=== PATIENT | female | born 1950 | race Caucasian/White ===

== ENCOUNTER 2016-11-19 09:57 | Outpatient (CLI) ==
[2016-06-15 14:13] VITALS: BMI 35.4
[2016-11-19 10:17] LABS: BILIRUBIN,URINE Negative (NEGATIVE); KETONES,URINE Negative (NEGATIVE); LEUKOCYTE ESTERASE ,URINE Negative (NEGATIVE); NITRITE,URINE Negative (NEGATIVE); PH,URINE 5.5 (5-9); PROTEIN,URINE Negative (NEGATIVE); URINE, BLOOD 3+ (NEGATIVE)
[2016-11-19 10:20] LABS: ADD URINE MICROSCOPIC YES; BACTERIA,URINE TRACE (NOT PRESENT)
== END 2016-11-19 09:58 | disposition home or self-care (01) ==
LOC: LAB 09:57
PROVIDERS: ATTEND Nurse Practitioner
DX: N39.0 Urinary tract infection, site not specified (principal)
CPT/HCPCS: 81001; 87086

== ENCOUNTER 2017-01-15 10:31 | Outpatient (CLI) ==
[2016-06-15 14:13] VITALS: BMI 35.4
[2017-01-15 11:01] LABS: HEMATOCRIT 40.6 % (37.0-47.0); HEMOGLOBIN 13.8 g/dl (12.0-16.0); MEAN CORPUSCULAR HEMOGLOBIN 30.8 pg (27.0-31.0); MEAN CORPUSCULAR VOLUME 90.6 fl (81.0-99.0); RED BLOOD COUNT 4.48 10^6/ul (4.20-5.40); WHITE BLOOD COUNT 11.66 K/ul (4.6-10.2)
[2017-01-15 11:13] LABS: BILIRUBIN,URINE Negative (NEGATIVE); KETONES,URINE Negative (NEGATIVE); LEUKOCYTE ESTERASE ,URINE Negative (NEGATIVE); NITRITE,URINE Negative (NEGATIVE); PH,URINE 5.5 (5-9); PROTEIN,URINE Negative (NEGATIVE); URINE, BLOOD 3+ (NEGATIVE)
[2017-01-15 11:18] LABS: ADD URINE MICROSCOPIC YES
[2017-01-15 11:22] LABS: ALBUMIN 3.6 g/dL (3.4-5.0); ALBUMIN/GLOBULIN RATIO 0.9; ANION GAP 17.6; BILIRUBIN,TOTAL 0.39 mg/dL (0.00-1.20); BUN/CREATININE RATIO 12.42; CALCIUM 9.6 mg/dL (8.2-10.2); CREATININE 1.61 mg/dL (0.60-1.30); MAGNESIUM 1.7 mg/dL (1.7-2.2); PHOSPHORUS 3.7 mg/dL (2.8-4.1); POTASSIUM 3.6 mmol/L (3.5-5.10); TOTAL PROTEIN 7.6 g/dL (5.8-8.1); URIC ACID 6.3 mg/dL (2.4-6.0)
[2017-01-16 08:18] LABS: URINE CREATINE 77.3 mg/dL (Not Estab.)
== END 2017-01-15 10:32 | disposition home or self-care (01) ==
LOC: LAB 10:31
PROVIDERS: ATTEND Nurse Practitioner
DX: N18.3 Chronic kidney disease, stage 3 (moderate) (principal)
CPT/HCPCS: 36415; 80053; 81001; 82570; 83735; 84100; 84156; 84550; 85025; 85027

== ENCOUNTER 2017-06-22 09:28 | Outpatient (CLI) ==
[2016-06-15 14:13] VITALS: BMI 35.4
[2017-06-22 09:43] LABS: HEMATOCRIT 38.1 % (37.0-47.0); HEMOGLOBIN 12.9 g/dl (12.0-16.0); MEAN CORPUSCULAR HEMOGLOBIN 30.3 pg (27.0-31.0); MEAN CORPUSCULAR HGB CONC 33.9 (31.8-35.4); MEAN CORPUSCULAR VOLUME 89.4 fl (81.0-99.0); RED BLOOD COUNT 4.26 10^6/ul (4.20-5.40); WHITE BLOOD COUNT 8.86 K/ul (4.6-10.2)
[2017-06-22 09:56] LABS: BILIRUBIN,URINE Negative (NEGATIVE); KETONES,URINE Negative (NEGATIVE); LEUKOCYTE ESTERASE ,URINE Negative (NEGATIVE); NITRITE,URINE Negative (NEGATIVE); PROTEIN,URINE Negative (NEGATIVE); URINE, BLOOD 2+ (NEGATIVE)
[2017-06-22 10:00] LABS: ADD URINE MICROSCOPIC YES
[2017-06-22 10:28] LABS: ALBUMIN 3.3 g/dL (3.4-5.0); ALBUMIN/GLOBULIN RATIO 0.92; ANION GAP 13.6; BILIRUBIN,TOTAL 0.35 mg/dL (0.00-1.20); BUN/CREATININE RATIO 18.43; CALCIUM 9.5 mg/dL (8.2-10.2); CREATININE 1.41 mg/dL (0.60-1.30); MAGNESIUM 1.6 mg/dL (1.7-2.2); PHOSPHORUS 3.4 mg/dL (2.8-4.1); POTASSIUM 3.6 mmol/L (3.5-5.10); TOTAL PROTEIN 6.9 g/dL (5.8-8.1); URIC ACID 6.8 mg/dL (2.4-6.0)
[2017-06-23 08:18] LABS: URINE CREATINE 118.4 mg/dL (Not Estab.)
== END 2017-06-22 09:29 | disposition home or self-care (01) ==
LOC: LAB 09:28
PROVIDERS: ATTEND Nurse Practitioner
DX: N18.3 Chronic kidney disease, stage 3 (moderate) (principal); E55.9 Vitamin D deficiency, unspecified
CPT/HCPCS: 36415; 80053; 81001; 82306; 82570; 83735; 83970; 84100; 84156; 84550; 85027

== ENCOUNTER 2017-08-05 15:15 | Emergency (ER) ==
[2017-08-05 15:22] VITALS: BP 143/80; TEMP 100.4; BMI 33.1
--- NOTE | 2017-08-05 16:06 | ED.PDOC ---
General ED Provider: Dr. SARAH GASPAR Chief Complaint: Back Pain Stated Complaint: Low back pain x 3 days, gradually getting worse. No known trauma. PMH of back pain but never this severe. PMH of chronic UTI resolved last october after months of treatment. PMH of diverticulitis without flare up in years. Time Seen by Physician: 16:00 Mode of Arrival: Walk-In Information Source: Patient Exam Limitations: No limitations Primary Care Provider: SUHAIL WALTON Nursing and Triage Documentation Reviewed and Agree: Yes Musculoskeletal Complaint Exam - Back Pain Complaint/Exam Mechanism of Injury: Reports: No known trauma Onset/Duration: 3 days Symptoms Are: Still present Timing: Constant Initial Severity: Mild Current Severity: Moderate Location: Reports: Diffuse Character: Reports: Aching, Throbbing Aggravating: Reports: Movements, Lifting, Bending, Walking Alleviating: Reports: None Associated Signs and Symptoms: Reports: Abdominal pain (generalized abd pain) Cauda Equina Risk Factors: Reports: None Epidural Abcess Risk Factors: Reports: None Related Surgical History: Reports: None Focal Tenderness: No Paraspinal Muscle Tenderness: Yes Paraspinal Muscle Spasm: No Scoliosis: No Lordosis: No Kyphosis: No SLR Test: Right Negative, Left Negative Hip Motion Testing Pain: Right Negative Focal Weakness: Present: None Focal Sensory Loss: Present: None Gait: Present: Normal Differential Diagnoses: Strain, Other (potential referred pain from multiple abd sources) Review of Systems - Review Of Systems Constitutional: Reports: No symptoms Respiratory: Reports: No symptoms Cardiac: Reports: No symptoms GI: Reports: Abdominal pain, Nausea, Vomiting (vomitted once last night) : Reports: Dysuria (difficulty voiding last night, small amount of urine unusually dark) Musculoskeletal: Reports: Back pain Neurological: Reports: No symptoms All Other Systems: Reviewed and Negative Past Medical History - Past Medical History Previously Healthy: Yes Endocrine: Reports: Dyslipidemia Cardiovascular: Reports: Hypertension Respiratory: Reports: None Hematological: Reports: None Gastrointestinal: Reports: None Genitourinary: Reports: UTI (chronic UTI last year with episode of sepsis), CKD Neuro/Psych: Reports: TIA Musculoskeletal: Reports: None Cancer: Reports: None Last Menstrual Period: hysterectomy - Surgical History General Surgical History: Reports: Unknown - Family History Family History: Reports: Unknown - Social History Smoking Status: Current every day smoker Hx Substance Use: No Alcohol Screening: None Lives: With family - Immunizations Tetanus Shot up to Date: No Influenza Vaccine within 12 Months: No Pneumococcal Vaccine up to Date: No Physical Exam - Physical Exam Appearance: Ill-appearing, No pain distress, Well-nourished, Obese Ill-appearing: Moderate Pain Distress: None Eyes: RYAN, EOMI, Conjunctiva clear ENT: Ears normal, Nose normal, Oropharynx normal Neck: Supple Respiratory: Airway patent, Breath sounds clear, Breath sounds equal, Respirations nonlabored Cardiovascular: RRR, Pulses normal, No rub, No murmur GI/: Soft, No masses, Bowel sounds normal, No Organomegaly, Tender ( generalized moderate tenderness with guarding or rebound) Musculoskeletal: Normal strength, ROM intact (lumbar paravertebral muscles are tender touch bilaterally), No edema, No calf tenderness Skin: Warm, Dry, Normal color Neurological: Sensation intact, Motor intact, Reflexes intact, Cranial nerves intact, Alert, Oriented Psychiatric: Affect appropriate, Mood appropriate Critical Care Note - Critical Care Note Total Time (mins): 0 Course - Course Hematology/Chemistry: 08/05/17 16:09 08/05/17 16:09 Orders, Labs, Meds: Lab Review 08/05/17 08/05/17 08/05/17 16:09 16:09 16:09 WBC 15.09 H RBC 4.12 L Hgb 12.5 Hct 36.7 L MCV 89.1 MCH 30.3 MCHC 34.1 RDW Coeff of Ellie 13.9 Plt Count 172 Immature Gran % (Auto) 0.8 Neut % (Auto) 83.7 Lymph % (Auto) 10.3 [place] % (Auto) 4.4 Eos % (Auto) 0.5 Baso % (Auto) 0.3 Immature Gran # (Auto) 0.1 Neut # 12.6 H Lymph # 1.6 [place] # 0.7 Eos # 0.1 Baso # 0.0 PT 27.5 H INR 2.78 Sodium 135 L Potassium 3.1 L Chloride 99 Carbon Dioxide 25 Anion Gap 14.1 BUN 33 H Creatinine 1.98 H Estimated GFR (MDRD) 25.00 BUN/Creatinine Ratio 16.66 Glucose 133 H Calcium 9.1 Total Bilirubin 0.47 AST 11 L ALT 11 L Alkaline Phosphatase 53 Total Protein 7.2 Albumin 3.0 L Globulin 4.2 Albumin/Globulin Ratio 0.71 Amylase 19 L Lipase 15 Urine Color Urine Clarity Urine pH Ur Specific Friend Urine Protein Urine Glucose (UA) Urine Ketones Urine Blood Urine Nitrite Urine Bilirubin Urine Urobilinogen Ur Leukocyte Esterase Urine Microscopic RBC Urine Microscopic WBC Ur Squamous Epith Cells Urine Bacteria 08/05/17 16:15 WBC RBC Hgb Hct MCV MCH MCHC RDW Coeff of Ellie Plt Count Immature Gran % (Auto) Neut % (Auto) Lymph % (Auto) [place] % (Auto) Eos % (Auto) Baso % (Auto) Immature Gran # (Auto) Neut # Lymph # [place] # Eos # Baso # PT INR Sodium Potassium Chloride Carbon Dioxide Anion Gap BUN Creatinine Estimated GFR (MDRD) BUN/Creatinine Ratio Glucose Calcium Total Bilirubin AST ALT Alkaline Phosphatase Total Protein Albumin Globulin Albumin/Globulin Ratio Amylase Lipase Urine Color Yellow Urine Clarity Slightly Urine pH 5.5 Ur Specific Friend 1.015 Urine Protein 2+ Urine Glucose (UA) Negative Urine Ketones Negative Urine Blood 3+ Urine Nitrite Positive Urine Bilirubin Negative Urine Urobilinogen 0.2 Ur Leukocyte Esterase 2+ Urine Microscopic RBC 10-20 Urine Microscopic WBC 30-50 Ur Squamous Epith Cells 2-5 Urine Bacteria 1+ Orders Category Date Time Status AMYLASE Stat LAB 08/05/17 16:09 Completed CBC W/ AUTO DIFF Stat LAB 08/05/17 16:09 Completed COMPREHENSIVE METABOLIC PANEL Stat LAB 08/05/17 16:09 Completed LIPASE Stat LAB 08/05/17 16:09 Completed PT WITH INR Stat LAB 08/05/17 16:09 Completed URINALYSIS C & S IF INDICATED Stat LAB 08/05/17 16:15 Completed URINE CULTURE Stat LAB 08/05/17 16:32 Received Vital Signs: Temp Pulse Resp BP Pulse Ox 08/05/17 15:15 100.4 F H 93 H 20 143/80 H 96 Departure - Departure Time of Disposition: 16:47 Disposition: HOME SELF-CARE Discharge Problem: Urinary tract infection Instructions: Urinary Tract Infection in Women (ED) Condition: Good Pt referred to PMD for follow-up: Yes (call doctor tomorrow for follow up appointment) Allergies/Adverse Reactions: Allergies No Known Allergies Allergy (Verified 08/05/17 15:23) Home Medications: Ambulatory Orders Calcium Polycarbophil [Fibercon] 2 tab PO DAILY 01/30/15 Colestipol HCl [Colestid] 1 gm PO DAILY 01/30/15 Lisinopril/Hydrochlorothiazide [Lisinopril-Hctz 20-25 mg Tab] 1 tab PO DAILY Lovastatin [Mevacor] 20 mg PO DAILY 01/30/15 Mirtazapine [Remeron] 15 mg PO QPM 01/30/15 Tramadol HCl [Ultram] 50 mg PO TID PRN 01/30/15 Warfarin Sodium [Coumadin] 3 mg PO QPM 01/30/15 Cholecalciferol (Vitamin D3) [Vitamin D3] 50,000 unit PO WEEKLY 08/19/16 Sucralfate [Carafate] 1 gm PO BID 08/19/16 Warfarin Sodium [Coumadin] 2 mg PO DIRECTED 08/19/16 Carvedilol 12.5 mg PO BID 02/20/17 Cyanocobalamin (Vitamin B-12) [Vitamin B-12] 3,000 mcg PO DAILY 02/20/17 L.acidoph,Paracasei, B.lactis [Probiotic] 1 each PO DAILY 02/20/17 Pantoprazole Sodium 40 mg PO BID 02/20/17 Cephalexin [Keflex] 500 mg PO QID #40 capsule 08/05/17 Docusate Sodium [Stool Softener] 100 mg PO BID 08/05/17 Estrogens, Conjugated [Premarin Vaginal Cream] 1 applic VG 2 TIMES PER WEEK Hydrocodone Bit/Acetaminophen [Tumtum 5-325] 1 each PO Q4HR PRN #20 tablet Disposition Discussed With: Patient, Family
[2017-08-05 16:18] LABS: BASOPHILS % (AUTO) 0.3 % (0.0-3.0); EOSINOPHILS # (AUTO) 0.1 K/ul (0.0-0.7); EOSINOPHILS % (AUTO) 0.5 % (0.0-7.0); HEMATOCRIT 36.7 % (37.0-47.0); HEMOGLOBIN 12.5 g/dl (12.0-16.0); IMMATURE GRANULOCYTE % (AUTO) 0.8 % (0.0-5.0); LYMPHOCYTES # (AUTO) 1.6 K/uL (0.60-3.4); LYMPHOCYTES % (AUTO) 10.3 (10.0-50.0); MEAN CORPUSCULAR HEMOGLOBIN 30.3 pg (27.0-31.0); MEAN CORPUSCULAR HGB CONC 34.1 (31.8-35.4); MEAN CORPUSCULAR VOLUME 89.1 fl (81.0-99.0); MONOCYTES # (AUTO) 0.7 K/uL (0.4-2.0); MONOCYTES % (AUTO) 4.4 (0-10); NEUTROPHILS # (AUTO) 12.6 K/ul (2.0-6.9); NEUTROPHILS % (AUTO) 83.7; PLATELET COUNT 172 10^3/uL (140-440); RED BLOOD COUNT 4.12 10^6/ul (4.20-5.40); WHITE BLOOD COUNT 15.09 K/ul (4.6-10.2)
[2017-08-05 16:24] LABS: PROTHROMBIN TIME 27.5 SEC (9.3-11.0)
[2017-08-05 16:26] LABS: BILIRUBIN,URINE Negative (NEGATIVE); KETONES,URINE Negative (NEGATIVE); LEUKOCYTE ESTERASE ,URINE 2+ (NEGATIVE); NITRITE,URINE Positive (NEGATIVE); PH,URINE 5.5 (5-9); PROTEIN,URINE 2+ (NEGATIVE); URINE, BLOOD 3+ (NEGATIVE)
[2017-08-05 16:30] LABS: ADD URINE MICROSCOPIC YES
[2017-08-05 16:31] LABS: BACTERIA,URINE 1+ (NOT PRESENT)
[2017-08-05 16:32] LABS: ALBUMIN/GLOBULIN RATIO 0.71; ANION GAP 14.1; BILIRUBIN,TOTAL 0.47 mg/dL (0.00-1.20); BUN/CREATININE RATIO 16.66; CALCIUM 9.1 mg/dL (8.2-10.2); CREATININE 1.98 mg/dL (0.60-1.30); POTASSIUM 3.1 mmol/L (3.5-5.10); TOTAL PROTEIN 7.2 g/dL (5.8-8.1)
== END 2017-08-05 16:55 | disposition home or self-care (01) ==
LOC: ED 15:15
DX: N39.0 Urinary tract infection, site not specified (principal); M54.5 Low back pain; Z87.440 Personal history of urinary (tract) infections; E78.5 Hyperlipidemia, unspecified; I10 Essential (primary) hypertension; N18.9 Chronic kidney disease, unspecified; Z79.01 Long term (current) use of anticoagulants; Z79.899 Other long term (current) drug therapy; F17.210 Nicotine dependence, cigarettes, uncomplicated; Z86.73 Personal history of transient ischemic attack (TIA), and cerebral infarction without residual deficits
CPT/HCPCS: 36415; 80053; 81001; 82150; 83690; 85025; 85610; 87086; 87186; 99283

== ENCOUNTER 2017-08-14 09:07 | Outpatient (CLI) ==
--- NOTE | 2017-08-17 09:11 | MAMMO ---
EXAM: Bilateral digital screening mammogram (2-D and 3-D) History: Screening Comparison: Bilateral mammogram 07/14/2016 Findings: MLO and CC views of bilateral breasts demonstrate predominately fatty replaced breast pare nchyma. CAD was reviewed by the radiologist. Tomosynthesis was performed. There are no dominant ma sses, no suspicious microcalcifications and no architectural distortions Impression: Stable negative mammogram. Recommend followup routine screening mammography in 1 year. BIRADS 1
== END 2017-08-14 09:08 | disposition home or self-care (01) ==
LOC: RAD 09:07
PROVIDERS: ATTEND Family Medicine
DX: Z12.31 Encounter for screening mammogram for malignant neoplasm of breast (principal)
CPT/HCPCS: 77067

== ENCOUNTER 2017-12-21 10:21 | Outpatient (CLI) | END 2017-12-21 10:22 | disposition home or self-care (01) | LOC: LAB 10:21 | PROVIDERS: ATTEND Nurse Practitioner | DX: N18.3 Chronic kidney disease, stage 3 (moderate) (principal); E55.9 Vitamin D deficiency, unspecified | CPT/HCPCS: 36415; 80053; 81001; 82306; 82570; 83735; 83970; 84100; 84156; 84550; 85027 ==

== ENCOUNTER 2018-02-08 07:51 | Outpatient (CLI) ==
--- NOTE | 2018-02-08 09:51 | DI ---
EXAM: Three views of the right knee. History: Right knee pain. Findings: No acute fracture or dislocation. Intact right knee arthroplasty hardware. Impression: No acute osseous abnormality
--- NOTE | 2018-02-08 09:53 | DI ---
EXAM: Two views of the right hip. History: Right hip pain. Findings: Atherosclerotic vascular calcifications. No acute fracture or dislocation. Right hip shanon nt space is relatively preserved. Mild enthesiopathy of the greater trochanter. Impression: No acute osseous abnormality.
--- NOTE | 2018-02-08 09:53 | DI ---
EXAM: Right tibia and fibula AP and lateral views. HISTORY: Right leg pain FINDINGS / IMPRESSION: No fracture or dislocation is identified. Previous total knee arthroplasty i s noted. Soft tissues within normal limits.
--- NOTE | 2018-02-08 11:04 | MRI ---
EXAM: Lumbar spine MRI without contrast. HISTORY: Low back pain with sciatica. COMPARISON: CT abdomen pelvis 06/15/2016. TECHNIQUE: Multiplanar, multisequence MR images were acquired lumbar spine without contrast. FINDINGS: Conus medullaris ends at L1-2 and is normal signal intensity. Canal diameter is developme ntally narrow due to congenitally short pedicles. Five non-rib bearing lumbar vertebra are present. There is minor mid lumbar levoscoliosis and mild accentuation usual lumbar lordosis with a trace ant erolisthesis of L5 on S1. There is minor kyphosis at the thoracolumbar junction due to marked anteri or disc space narrowing at T12-L1. There is ventral spondylosis from T11-12 to L1-2 and there is christiano ed anterior disc space narrowing at T12-L1 with extensive modic type 2 endplate changes. There is di sc desiccation and T12-L1, L4-5 and L5-S1. At L1-2, there is ventral spondylosis with bright STIR si gnal edema along the right anterior inferior endplate of L1. The partially visualized liver, spleen and right kidney are unremarkable. Simple left renal cyst is present. There are no paravertebral masses. There is fatty atrophy of the posterior spinous muscles in the lower back and posterior to the sacrum. T12-L1: There is a posterior disc osteophyte complex and small central disc protrusion that is sligh tly asymmetric to the right. There is no central canal stenosis or foraminal stenosis. L1-2: There is a mild disc bulge and minor bilateral facet arthropathy. There is minor right neural foraminal stenosis. L2-3: The intervertebral disc is normal. There is mild bilateral facet arthropathy and ligamentum f lavum hypertrophy without foraminal stenosis. L3-4: There is a mild disc bulge that is asymmetric to the left and mild to moderate bilateral hyper trophic facet arthropathy and ligamentum flavum hypertrophy. This causes triangulation of the thecal sac and mild left foraminal stenosis. L4-5: There is a mild disc bulge that is asymmetric to the right and mild to moderate left and moder ate right hypertrophic facet arthropathy and ligamentum flavum hypertrophy which narrows the posterol ateral thecal sac bilaterally. This causes triangulation of the thecal sac and minor left right fora modesta stenosis. There is no central canal stenosis. L5-S1: There is a trace anterolisthesis of L5 on S1 and there is a mild disc bulge, severe left and mild right hypertrophic facet arthropathy and ligamentum flavum hypertrophy is present. There are tw o prominent synovial cysts along the posterior inferior left facet joint and there is a tiny perineur al cyst along the right S1 nerve. The thecal sac is small with tapering and measures 9 mm in AP diam eter. IMPRESSION: 1. Mild lumbar degenerative spondylosis and moderate to severe hypertrophic facet arthropathy at L4- 5 and L5-S1. 2. No lumbar disc herniations or pars interarticularis defects. 3. Small central disc protrusion T12-L1.
== END 2018-02-08 07:52 | disposition home or self-care (01) ==
LOC: RAD 07:51
PROVIDERS: ATTEND Family Medicine
DX: M79.604 Pain in right leg (principal); M54.41 Lumbago with sciatica, right side; M54.42 Lumbago with sciatica, left side; G89.29 Other chronic pain

== ENCOUNTER 2018-03-12 08:15 | Outpatient (RCR) ==
--- NOTE | 2018-02-18 11:23 | RS.OPPTEV2 ---
Date of Note: 02/17/18 Visit #: 1 Date of Evaluation: 02/17/18 Payer Source: MEDICARE Surgery Performed?: No Treatment Diagnosis: acute low back pain without sciatica, injury of RLE History of Condition/Mechanism of Injury:: pt states she had a fall last week suferring injury to RLE. pt states she has had 3-4 yr hx of back pain. Prior Level of Function.....Patient was independent with: ADL's, Caregiving, Ambulation/Mobility, Community Integration/Access Functional Limitations: ADL's, Reaching, Pushing, Pulling, Lifting, Standing, Squatting, Ambulation, Community Access/Integration Current Subjective/complaints:: pt states she is having more pain in RLE than in her back right now. 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 Treatment Side (optional): Right *Precautions: n/a Medical History Medical History: Hypertension, Arthritis Surgical History: Knee Replacement, Cholecystectomy, Hysterectomy Surgical History Comments:: shen, Smoking Status: Current every day smoker Diagnostic Testing/Imaging:: MRI lumbar spine: mild lumbar degenerative spondylosis and mod to severe hypertrophic facet arthropathy at L4-L5, L5-S1, small central disc protrusion t12-L1 Hx Home Medications: carvedilol, colestipol, lisinopril-Hctz, lovastatin, mirtazapine, pantoprazole, sucralfate, tramadol, vit b12, vit d, warfarin, flexeril, neurontin, Patient's Goals: decrease pain in R LE and low back Pain Assessment - Pain Description Pain Location: RLE Pain Description: Sharp, Aching, Acute Current Pain Intensity: 5-6/10 Worst Pain Intensity: 9/10 Other Comments regarding Pain:: pt reports pain in low back 0 at rest increased Functional Outcome Measure Oswestry LBP: 31 (62) - G Codes & Severity Modifier G Codes & Modifier: mobility current CL. mobility goal CJ Source of G Code score: oswestry low back pain scale Observation - Observation Inspection: hamstring length BLE WFL's Posture: Forward Head, Rounded Shoulders Handedness: Right Gait - Gait Pattern General Gait Pattern Observation: Antalgic Gait, Crouched Gait, Decrease Stride Lngth (R) Gait Comments: Instructed pt on proper gait sequencing with quad cane. pt requires cues for sequencing, posture as well as step length. General Range of Motion: BUE WFL's. LLE WFL's. RLE WFL's with pain in all planes of motion Muscle Strength: BUE 4+/5. LLE 4+/5. RLE hip flex 3+/5, knee flex/ext 3+/5, ankle DF/PF 4-/5 - ROM Lumbar Flexion: Hand reach to Mid-Thighs Sidebending to Left: Reach to Lateral Joint Line Sidebending to Right: Reach to Mid-thigh Lumbar Spine ROM Limitations: Soft Tissue Tightness, Muscle Weakness, Pain - Strength Trunk Extension: 4- Good- Trunk Flexion: 3- Fair- Trunk Lateral Flexion: 3- Fair- Trunk Rotation: 3+ Fair+ - Special Tests LUZMARIA Test: Negative Right SLR Test: Negative Right Palpation Palpation Findings: Tenderness, Muscle Guarding Comments:: pt with tenderness on R lat LE, min muscle guarding noted in lumbar paraspinals. Sensation - Sensation Right Upper Extremity: Intact/Normal Left Upper Extremity: Intact/Normal Right Lower Extremity: Impaired (Reports occasional numbness RLE) Left Lower Extremity: Intact/Normal Balance - Sitting Balance Static Sitting Balance: Good Dynamic Sitting Balance: Good - Standing Balance Static Standing Balance: Fair Dynamic Standing Balance: Fair - Comments Balance Assessment Comments: tinetti score: 13/28 - Heat/Cryotherapy Treatment: Hot Pack (lumbar rosa), Cryotherapy (R lat LE) Interventions - Exercise/Activities/Manual Therapy Exercises/Activities: pt performed AP, LAQ, seated hip flex, pelvic tilts, isometric hip add, resisted hip flex Manual Therapy: n/a HOME EXERCISE PROGRAM: pt given written HEP including AP, LAQ, seated hip flex, pelvic tilts, isometric hip add, resisted hip flex - Charges Timed Code Treatment Minutes: 50 Total Treatment Time: 65 Procedures billed for this date of service:: eval low, CP EVALUATION COMPLEXITY LEVEL EVALUATION COMPLEXITY LEVEL: HISTORY: Low (OA, HTN), EXAM OF BODY SYSTEMS: Medium (pain, balance, strength, gait), CLINICAL PRESENTATION: Medium (evolving) , CLINICAL DECISION MAKING: Low Assessment Assessment: pt presents with Low back pain as well as pain R LE s/p fall. pt with decreased strength RLE, decreased balance, decreased gait safety as well as well as n/t RLE. Patient Education: Home Exercise Program, Activity Modification, Education of Plan of Care Rehab Potential: Good Short Term Goals Goal #1: pt rate pain < 5/10 with activity Goal to be met by: 03/10/18 Goal #2: pt amb with quad cane in dept with decreased c/o pain in improved posture Goal to be met by: 03/10/18 Goal #3: pt demonstrate improved RLE strength 4-/5 to 4/5 Goal to be met by: 03/10/18 Goal #4: pt demonstrate improved dyn stand balance as noted by tinetti score Goal to be met by: 03/10/18 Punch Box Tender Goals Goal #1: pt improved strength BLE 4 to 4+/5 and independent with HEP Goal to be met by: 03/31/18 Goal #2: pt with improved dyn stand balance as noted by tinetti score Goal to be met by: 03/31/18 Goal #3: 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 Goal to be met by: 03/31/18 Goal #4: pt amb community distances with less pain and no LOB Goal to be met by: 03/31/18 Plan - Treatment to be Provided Procedures: Therapeutic Exercises, Therapeutic Activity, Gait Training, Neuromuscular Rehab, Manual Therapy, Massage, Patient Education Modalities: Electrical Stimulation, Ultrasound/Phonophoresis, Class IV Laser, Cryotherapy, Hot Packs - Treatment Plan Frequency: 3 X week Duration: 6 weeks ORDER # VISITS AND/OR THROUGH DATE: 03/31/18 - Treatment Code (1) Low back pain without sciatica Code(s): M54.5 - LOW BACK PAIN Qualifiers: Chronicity: chronic Back pain laterality: unspecified Qualified Code(s): M54.5 - Low back pain; G89.29 - Other chronic pain; G89.29 - Other chronic pain (2) Acute pain of right lower extremity Code(s): M79.604 - PAIN IN RIGHT LEG (3) Muscle weakness Code(s): M62.81 - MUSCLE WEAKNESS (GENERALIZED) (4) Gait disturbance Code(s): R26.9 - UNSPECIFIED ABNORMALITIES OF GAIT AND MOBILITY
--- NOTE | 2018-02-19 11:41 | RS.OPPTDN ---
Subjective Date of Note: 02/19/18 Visit #: 2 Date of Evaluation: 02/17/18 Payer Source: MEDICARE Treatment Diagnosis: acute low back pain without sciatica, injury of RLE Current Subjective/complaints:: Patient reports right LE pain is limiting her ambulation as much as her back pain. Reports she feels much better following modalities and gentle exercise. Asks if she can begin stationary bike at home. *Precautions: n/a Pain Assessment - Pain Description Pain Location: Lowback and right LE, primarily the lateral lower right leg. Pain Description: Aching Current Pain Intensity: moderate Other Comments regarding Pain:: Reports a decrease in pain and improvement in walking. Does not rate on 0-10 scale. - Treatment Modality: Electrical Stim Unattended Parameters/Method Applied: [id number] HVGC to 125p.v. with 4 large pads cross current to the bilateral lumbar paraspinals with HP prior to EX. Patient Position: Supine - Heat/Cryotherapy Treatment: Hot Pack ([id number] with Estim ) Interventions - Exercise/Activities/Manual Therapy Exercises/Activities: Assisted gentle stretching of the bilateral hamstrings and SKTC during the first half of Estim treatment. Then AP, SAQ, pelvic tilts, and isometric hip add. Ended with additional stretching of hamstrings, SKTC, piriformis, and limited trunk rotation. No new additions to HEP but patient is advised she may begin stationary bike for ROM only. Total minutes of Exercise: 15mins Manual Therapy: n/a HOME EXERCISE PROGRAM: pt given written HEP including AP, LAQ, seated hip flex, pelvic tilts, isometric hip add, resisted hip flex - Charges Timed Code Treatment Minutes: 15mins Total Treatment Time: 35mins Procedures billed for this date of service:: HP, Estim unattended, EX Assessment: Patient responds well to initial modalities. She is motivated to porgress HEP. Patient Education: Body/Joint mechanics, Home Exercise Program, Home Safety Patient demonstrates compliance with HEP?: Yes Short Term Goals Goal #1: pt rate pain < 5/10 with activity Goal to be met by: 03/10/18 Goal #2: pt amb with quad cane in dept with decreased c/o pain in improved posture Goal to be met by: 03/10/18 Goal #3: pt demonstrate improved RLE strength 4-/5 to 4/5 Goal to be met by: 03/10/18 Goal #4: pt demonstrate improved dyn stand balance as noted by tinetti score Goal to be met by: 03/10/18 Longterm Goals Goal #1: pt improved strength BLE 4 to 4+/5 and independent with HEP Goal to be met by: 03/31/18 Progress towards goal: Progressing Goal #2: pt with improved dyn stand balance as noted by tinetti score Goal to be met by: 03/31/18 Goal #3: 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
--- NOTE | 2018-02-22 15:53 | RS.OPPTDN ---
Subjective Date of Note: 02/22/18 Visit #: 3 Date of Evaluation: 02/17/18 Payer Source: MEDICARE Treatment Diagnosis: acute low back pain without sciatica, injury of RLE Current Subjective/complaints:: Patient says she was really sore over the weekend. She says she is getting better with walking using her NBQC. Earnestine admits she has not been able to try HEP yet because she had a family and was busy attending services. She has just taken a pain pill prior to PT today. *Precautions: n/a Pain Assessment - Pain Description Pain Location: Increased R low back from previous visit - Treatment Modality: Electrical Stim Unattended Parameters/Method Applied: hivolt 2 large pads to the R lumbar paraspinals and 2 to the L @ 215 and 145 pk volts respectively. Patient Position: Supine - Heat/Cryotherapy Treatment: Hot Pack Interventions - Exercise/Activities/Manual Therapy Exercises/Activities: Assisted gentle stretching of the bilateral hamstrings, calf stretches, SKTC x 3-4. Patient performs QS, AP, SAQ, pelvic tilts, and isometric hip add/abd, and alternate LE hooklying lift. Ended with additional stretching of hamstrings. Total minutes of Exercise: 17 Manual Therapy: n/a HOME EXERCISE PROGRAM: pt given written HEP including AP, LAQ, seated hip flex, pelvic tilts, isometric hip add, resisted hip flex - Charges Timed Code Treatment Minutes: 17 Total Treatment Time: 37 Procedures billed for this date of service:: hp, estim (un), ex Assessment: Patient presents with moderate pain level to her R LB and R LE, which affects her gait and ability to get up into her husbands vehicle. She felt mild relief with first few treatment sessions and does admit improvement today. She should benefit from further modalities to assist in R sided back pain and improve strength for functional tasks such as getting in/out vehicle. Patient Education: Education of diagnosis, Body/Joint mechanics, Home Exercise Program, Education of Plan of Care Patient demonstrates compliance with HEP?: Yes (Has initiated) Short Term Goals Goal #1: pt rate pain < 5/10 with activity Goal to be met by: 03/10/18 Progress towards Goal:: Progressing Goal #2: pt amb with quad cane in dept with decreased c/o pain in improved posture Goal to be met by: 03/10/18 Goal #3: pt demonstrate improved RLE strength 4-/5 to 4/5 Goal to be met by: 03/10/18 Goal #4: pt demonstrate improved dyn stand balance as noted by tinetti score Goal to be met by: 03/10/18 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 Goal #1: pt improved strength BLE 4 to 4+/5 and independent with HEP Goal to be met by: 03/31/18 Progress towards goal: Progressing Goal #2: pt with improved dyn stand balance as noted by tinetti score Goal to be met by: 03/31/18 Goal #3: 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
--- NOTE | 2018-02-24 09:48 | RS.OPPTDN ---
Subjective Date of Note: 02/24/18 Visit #: 4 Date of Evaluation: 02/17/18 Payer Source: MEDICARE Treatment Diagnosis: acute low back pain without sciatica, injury of RLE Current Subjective/complaints:: Patient says she did not get any sleep last night due to R LE pain. She says pain is now at the ankle. She says it is still difficult for her to straighten her knee. *Precautions: n/a Pain Assessment - Pain Description Pain Location: entire R LE to the ankle - Treatment Modality: Electrical Stim Unattended Parameters/Method Applied: 2 large pads to the R lumbar paraspinals and R SI @ 205 pk volts and 2 large pads to the L lumbar paraspinals @ 165 pk volts x 20 mins Patient Position: Supine - Heat/Cryotherapy Treatment: Hot Pack Interventions - Exercise/Activities/Manual Therapy Exercises/Activities: Assisted gentle stretching of the bilateral hamstrings, calf stretches, SKTC x 3-4. Patient performs QS, AP, SAQ, pelvic tilts, and isometric hip add/abd, and alternate LE hooklying lift. Pillow squeezes 2x10. Ended with more QS and gentle HS stretching due to increased pain today. Total minutes of Exercise: 22 Manual Therapy: n/a HOME EXERCISE PROGRAM: pt given written HEP including AP, LAQ, seated hip flex, pelvic tilts, isometric hip add, resisted hip flex - Charges Timed Code Treatment Minutes: 22 Total Treatment Time: 42 Procedures billed for this date of service:: hp, estim (Un), ex Assessment: Patient presents with increased antalgic gait, increased R LE pain now extending to the ankle. Patient continues to have difficulty performing R knee extension and jm gentle hamstring stretching due to knee pain increasing. Patient Education: Body/Joint mechanics, Home Safety, Education of Plan of Care Patient demonstrates compliance with HEP?: Yes (as able) Short Term Goals Goal #1: pt rate pain < 5/10 with activity Goal to be met by: 03/10/18 Progress towards Goal:: Progressing Goal #2: pt amb with quad cane in dept with decreased c/o pain in improved posture Goal to be met by: 03/10/18 Goal #3: pt demonstrate improved RLE strength 4-/5 to 4/5 Goal to be met by: 03/10/18 Goal #4: pt demonstrate improved dyn stand balance as noted by tinetti score Goal to be met by: 03/10/18 [facility] Goals Goal #1: pt improved strength BLE 4 to 4+/5 and independent with HEP Goal to be met by: 03/31/18 Progress towards goal: Progressing Goal #2: pt with improved dyn stand balance as noted by tinetti score Goal to be met by: 03/31/18 Goal #3: pt 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
--- NOTE | 2018-02-26 09:43 | RS.OPPTDN ---
Subjective Date of Note: 02/26/18 Visit #: 5 Date of Evaluation: 02/17/18 Payer Source: MEDICARE Treatment Diagnosis: acute low back pain without sciatica, injury of RLE Current Subjective/complaints:: Patient says that she had a "bad day" yesterday and admits increased pain to the R lower leg (pointing to just distal to the patella to retirement to the ankle). *Precautions: n/a - Treatment Modality: Ultrasound Parameters/Method Applied: continuous @ 1.5 w/cm2 x 10 to R lumbar parapsinals and R superior gluteal region Patient Position: Supine - Heat/Cryotherapy Treatment: Hot Pack (mid to low back in supine x 20 mins) Interventions - Exercise/Activities/Manual Therapy Exercises/Activities: Assisted gentle stretching of the bilateral hamstrings, calf stretches, SKTC x 3-4. Patient performs QS, AP, SAQ, pelvic tilts, and isometric hip add/abd, and alternate LE hooklying lift. Pillow squeezes 2x10. Total minutes of Exercise: 16 Manual Therapy: n/a HOME EXERCISE PROGRAM: pt given written HEP including AP, LAQ, seated hip flex, pelvic tilts, isometric hip add, resisted hip flex - Charges Timed Code Treatment Minutes: 28 Total Treatment Time: 43 Procedures billed for this date of service:: hp, u/s, ex Assessment: Patient treatment modified to u/s from estim to verify any symptom change. She remains with mod to severe pain intermittently to the R lower leg laterally that impedes her gait and overall functional tasks. Patient Education: Education of diagnosis, Education of Plan of Care Patient demonstrates compliance with HEP?: Yes Short Term Goals Goal #1: pt rate pain < 5/10 with activity Goal to be met by: 03/10/18 Progress towards Goal:: Progressing Goal #2: pt amb with quad cane in dept with decreased c/o pain in improved posture Goal to be met by: 03/10/18 Goal #3: pt demonstrate improved RLE strength 4-/5 to 4/5 Goal to be met by: 03/10/18 Goal #4: pt demonstrate improved dyn stand balance as noted by tinetti score Goal to be met by: 03/10/18 Halfway Goals Goal #1: pt improved strength BLE 4 to 4+/5 and independent with HEP Goal to be met by: 03/31/18 Progress towards goal: Progressing Goal #2: pt with improved dyn stand balance as noted by tinetti score 22/28 Goal to be met by: 03/31/18 Goal #3: 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
--- NOTE | 2018-03-01 09:42 | RS.OPPTDN ---
Subjective Date of Note: 03/01/18 Visit #: 6 Date of Evaluation: 02/17/18 Payer Source: MEDICARE Treatment Diagnosis: acute low back pain without sciatica, injury of RLE Current Subjective/complaints:: Patient thinks u/s relieved pain and is walking better. She reports she can lay her R leg down better and can straighten her knee more. *Precautions: n/a Pain Assessment - Pain Description Pain Location: entire R LE to ankle including R low back - Treatment Modality: Ultrasound Parameters/Method Applied: continuous @ 1.5 w/cm2 x 12 mins R lumbar paraspinals and superior gluteal region Patient Position: Left Sidelying - Heat/Cryotherapy Treatment: Hot Pack (mid to low back in supine x 20 mins) Interventions - Exercise/Activities/Manual Therapy Exercises/Activities: Assisted gentle stretching of the bilateral hamstrings, calf stretches, SKTC x 3-4. Patient performs QS, AP, SAQ, pelvic tilts, and isometric hip add/abd, and alternate LE hooklying lift. Pillow squeezes 2x10. Finished with more QS. Total minutes of Exercise: 18 Manual Therapy: n/a HOME EXERCISE PROGRAM: pt given written HEP including AP, LAQ, seated hip flex, pelvic tilts, isometric hip add, resisted hip flex - Charges Timed Code Treatment Minutes: 30 Total Treatment Time: 50 Procedures billed for this date of service:: hp, u/s, ex Assessment: Patient experiencing reduced pain along the R LE and low back following previous modification of treatment from estim to u/s. Patient received u/s again today and patient is able to allow increased WB onto the R LE with gait and demo improved ease and ability to lift the R LE into her husbands truck and onto treatment table today. Patient Education: Education of diagnosis, Education of Plan of Care Patient demonstrates compliance with HEP?: Yes Short Term Goals Goal #1: pt rate pain < 5/10 with activity Goal to be met by: 03/10/18 Progress towards Goal:: Progressing Goal #2: pt amb with quad cane in dept with decreased c/o pain in improved posture Goal to be met by: 03/10/18 Progress towards Goal:: Progressing Goal #3: pt demonstrate improved RLE strength 4-/5 to 4/5 Goal to be met by: 03/10/18 Progress towards Goal:: Progressing Goal #4: pt demonstrate improved dyn stand balance as noted by tinetti score Goal to be met by: 03/10/18 [employer] 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
--- NOTE | 2018-03-03 10:35 | RS.OPPTDN ---
Subjective Date of Note: 03/03/18 Visit #: 7 Date of Evaluation: 02/17/18 Payer Source: MEDICARE Treatment Diagnosis: acute low back pain without sciatica, injury of RLE Current Subjective/complaints:: Patient says her pain has been better in the past few days. She says her amb has become somewhat faster and easier. She says she anticipated her pain relief would be faster though since she did not have "damage" shown on the xray. *Precautions: n/a Pain Assessment - Pain Description Pain Location: down the R LE to ankle - Treatment Modality: Ultrasound Parameters/Method Applied: continuous @ 1.5 w/cm2 x 12 mins to the R lumbar paraspinals and superior glut Patient Position: Left Sidelying - Heat/Cryotherapy Treatment: Hot Pack (mid to low back in supine) Interventions - Exercise/Activities/Manual Therapy Exercises/Activities: Assisted gentle stretching of the bilateral hamstrings, calf stretches, SKTC x 3-4. Patient performs QS, AP, SAQ, pelvic tilts, and isometric hip add/abd, and alternate LE hooklying lift. Pillow squeezes 2x10. Finished with more QS. Total minutes of Exercise: 20 Manual Therapy: n/a HOME EXERCISE PROGRAM: pt given written HEP including AP, LAQ, seated hip flex, pelvic tilts, isometric hip add, resisted hip flex - Charges Timed Code Treatment Minutes: 32 Total Treatment Time: 52 Procedures billed for this date of service:: hp, u/s, ex Assessment: Patient still has difficulty lifting her R leg onto our bed and laying it down flat, unless she does it slowly. She is experiencing less pain and improved gait speed however. She admits now being able to walk around her home without her NBQC currently. Patient Education: Home Exercise Program, Education of Plan of Care Patient demonstrates compliance with HEP?: Yes Short Term Goals Goal #1: pt rate pain < 5/10 with activity Goal to be met by: 03/10/18 Progress towards Goal:: Progressing Goal #2: pt amb with quad cane in dept with decreased c/o pain in improved posture Goal to be met by: 03/10/18 Progress towards Goal:: Progressing Goal #3: pt demonstrate improved RLE strength 4-/5 to 4/5 Goal to be met by: 03/10/18 Progress towards Goal:: Progressing Goal #4: pt demonstrate improved dyn stand balance as noted by tinetti score Goal to be met by: 03/10/18 Custodial Goals Goal #1: pt improved strength BLE 4 to 4+/5 and independent with HEP Goal to be met by: 03/31/18 Progress towards goal: Progressing Goal #2: pt with improved dyn stand balance as noted by tinetti score Goal to be met by: 03/31/18 Goal #3: pt report able to perform ADL's/ light before school w less pain Goal to be met by: 03/31/18 Goal #4: pt amb community distances with less pain and no LOB Goal to be met by: 03/31/18 Plan PLAN OF CARE EXPIRES ON:: 03/31/18 ORDER # VISITS AND/OR THROUGH DATE: 03/31/18 PLAN: Patient to continue TIW for one more week per order continuing to progress away from AD
--- NOTE | 2018-03-05 11:00 | RS.OPPTDN ---
Subjective Date of Note: 03/05/18 Visit #: 8 Date of Evaluation: 02/17/18 Payer Source: MEDICARE Treatment Diagnosis: acute low back pain without sciatica, injury of RLE Current Subjective/complaints:: Patient says her back pain is much better and she is sleeping is improving, but her R leg is still awakening her at night. *Precautions: n/a - Treatment Modality: Ultrasound Parameters/Method Applied: continuous @ 1.5 w/cm2 x 10 mins to R superior glut region Patient Position: Left Sidelying - Heat/Cryotherapy Treatment: Hot Pack (mid to low back and the length of the R leg x 20 mins supine) Interventions - Exercise/Activities/Manual Therapy Exercises/Activities: Assisted gentle stretching of the bilateral hamstrings, calf stretches, SKTC x 3-4. Patient continues with QS, AP, SAQ 1 1/2#, pelvic tilts, and isometric hip add/abd, and alternate LE hooklying lift. Pillow squeezes 2x10. Finished with more QS. Instructed in proper heel strike and toe off with amb to normalize gait pattern. Total minutes of Exercise: 22 Manual Therapy: n/a HOME EXERCISE PROGRAM: pt given written HEP including AP, LAQ, seated hip flex, pelvic tilts, isometric hip add, resisted hip flex - Charges Timed Code Treatment Minutes: 32 Total Treatment Time: 47 Procedures billed for this date of service:: hp, u/s, ex Assessment: Patient improving with reduced pain allowing her to raise the R leg into her 's truck and amb better. Back pain is significantly better, but remains to the R LE limiting her gait by decreased heel strike. Patient Education: Body/Joint mechanics, Home Exercise Program Patient demonstrates compliance with HEP?: Yes Short Term Goals Goal #1: pt rate pain < 5/10 with activity Goal to be met by: 03/10/18 Progress towards Goal:: Progressing Goal #2: pt amb with quad cane in dept with decreased c/o pain in improved posture Goal to be met by: 03/10/18 Progress towards Goal:: Progressing Goal #3: pt demonstrate improved RLE strength 4-/5 to 4/5 Goal to be met by: 03/10/18 Progress towards Goal:: Progressing Goal #4: pt demonstrate improved dyn stand balance as noted by tinetti score Goal to be met by: 03/10/18 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
--- NOTE | 2018-03-10 09:45 | RS.OPPTDN ---
Subjective Date of Note: 03/10/18 Visit #: 9 Date of Evaluation: 02/17/18 Payer Source: MEDICARE Treatment Diagnosis: acute low back pain without sciatica, injury of RLE Current Subjective/complaints:: Patient says her R leg is less painful. She says she still has trouble lifting it out to the side while laying on her side, but is also getting better. She says she left her cane at home and feels that she is steadier. *Precautions: n/a - Treatment Modality: Ultrasound Parameters/Method Applied: continuous @ 1.6 w/cm2 x 10 mins to the R lumbar paraspinals and R superior gluteal region Patient Position: Left Sidelying - Heat/Cryotherapy Treatment: Hot Pack (mid to low back and over the R thigh in supine x 20 mins) Interventions - Exercise/Activities/Manual Therapy Exercises/Activities: Patient lays L sidelying: Clams x 10. Supine: hip abd x 10, SLR (AAROM) 2x5, Alternate LE lift x 10, pillow squeezes 2x10. Assisted gentle stretching of the bilateral hamstrings, calf stretches, SKTC, and trunk rotation x 3-4 reps. Patient continues with QS, AP, SAQ 1 1/2#, pelvic tilts, and isometric hip abd x 10. Total minutes of Exercise: 22 Manual Therapy: n/a HOME EXERCISE PROGRAM: pt given written HEP including AP, LAQ, seated hip flex, pelvic tilts, isometric hip add, resisted hip flex - Charges Timed Code Treatment Minutes: 32 Total Treatment Time: 52 Procedures billed for this date of service:: hp, u/s, ex Assessment: Patient presents amb without AD needing occasional CRM SOLUTION ARCHITECT, but increased pace and steadiness. She is experiencing reduced pain level and improved ability to lift the R leg into abd in standing and sidelying, having no difficulty in supine or sidelying with the knee bent as in clams. She should continue to improve with progressive therex and modalties. Patient Education: Body/Joint mechanics, Home Exercise Program, Education of Plan of Care Patient demonstrates compliance with HEP?: Yes Short Term Goals Goal #1: pt rate pain < 5/10 with activity Goal to be met by: 03/10/18 Progress towards Goal:: Progressing Goal #2: pt amb with quad cane in dept with decreased c/o pain in improved posture Goal to be met by: 03/10/18 Progress towards Goal:: Met Goal #3: pt demonstrate improved RLE strength 4-/5 to 4/5 Goal to be met by: 03/10/18 Progress towards Goal:: Met Goal #4: pt demonstrate improved dyn stand balance as noted by tinetti score Goal to be met by: 03/10/18 Progress towards Goal:: Progressing (assess next session) 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 Goals Goal #1: pt improved strength BLE 4 to 4+/5 and independent with HEP Goal to be met by: 03/31/18 Progress towards goal: Progressing Goal #2: pt with improved dyn stand balance as noted by tinetti score Goal to be met by: 03/31/18 Progress towards goal: Progressing Goal #3: 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
--- NOTE | 2018-03-12 11:52 | RS.OPPTDN ---
Subjective Date of Note: 03/12/18 Visit #: 10 Date of Evaluation: 02/17/18 Payer Source: MEDICARE Treatment Diagnosis: acute low back pain without sciatica, injury of RLE Current Subjective/complaints:: Patient says she had a follow up with her MD yesterday and he has referred her to Dr. Nunn regarding her back. She says she can now sleep a little on her R side in which she could not do since she had her injury. She says she is able to walk without her cane steadier, but slowly and cautiously. *Precautions: n/a Pain Assessment - Pain Description Pain Location: R low back and down the R lateral leg - Treatment Modality: Ultrasound Parameters/Method Applied: continuous @ 1.6 w/cm2 x 10 mins to the R lower lumbar paraspinals and superior gluteal region. Patient Position: Left Sidelying - Heat/Cryotherapy Treatment: Hot Pack (mid to low back and over the R lateral mid to lower leg x 20 mins) Interventions - Exercise/Activities/Manual Therapy Exercises/Activities: Patient lays L sidelying: Clams 2 x 10, hip flexion, extension with knee extended x 10. Supine: hip abd x 10, SLR (AAROM) 2x5, SAQ with 2#, R LE lift with 2#, DF with green tband all 2x10. Alternate LE lift x 10, pillow squeezes 2x10. QS, hip abd with knee extended, Isometric hip abd and flexion x 10. Assisted gentle stretching of the bilateral hamstrings, calf stretches, SKTC, and trunk rotation x 3-4 reps. Patient assisted with Oswestry LBP Scale. Total minutes of Exercise: 26 Manual Therapy: n/a HOME EXERCISE PROGRAM: pt given written HEP including AP, LAQ, seated hip flex, pelvic tilts, isometric hip add, resisted hip flex - Objective Findings Observations,measurements,etc.: 26 or 52% for Oswestry Scale (EVAL was 31 or 62% ) - Charges Timed Code Treatment Minutes: 36 Total Treatment Time: 56 Procedures billed for this date of service:: ex2, u/s, hp Assessment: Patient has progressed with jm to progressive activity as well as reduced back pain to only slight intermittently. She remains with R LE pain that runs laterally to just distal to the knee. She demo improved score per Oswestry Scale bringing her into the next category, but could possibly progress further to the goal category. Patient Education: Body/Joint mechanics, Home Exercise Program, Education of Plan of Care Patient demonstrates compliance with HEP?: Yes Short Term Goals Goal #1: pt rate pain < 5/10 with activity Goal to be met by: 03/10/18 Progress towards Goal:: Met Goal #2: pt amb with quad cane in dept with decreased c/o pain in improved posture Goal to be met by: 03/10/18 Progress towards Goal:: Met Goal #3: pt demonstrate improved RLE strength 4-/5 to 4/5 Goal to be met by: 03/10/18 Progress towards Goal:: Met Goal #4: pt demonstrate improved dyn stand balance as noted by tinetti score Goal to be met by: 03/10/18 Progress towards Goal:: Met () Long-Term Goals Goal #1: pt improved strength BLE 4 to 4+/5 and independent with HEP Goal to be met by: 03/31/18 Progress towards goal: Partially Met Comments: Met for the L LE Goal #2: pt with improved dyn stand balance as noted by tinetti score Goal to be met by: 03/31/18 Progress towards goal: Progressing Goal #3: 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 SHe may benefit from obtaining order to continue until 03/31/18.
--- NOTE | 2018-03-15 11:41 | RS.OPPTDC ---
Date of Discharge: 03/12/18 Date of Evaluation: 02/17/18 Number of Visits: 10 Treatment Diagnosis: acute low back pain without sciatica, injury of RLE Current Level of Function: pt demonstrates improved hamstring length, pt is able to tolerate progressive ex for RLE and demonstrates 4-/5 for hip and knee. Current Complaints/Gains: pt reports her back pain is decreased but continues to struggle with R lat LE pain. LE pain is improving however slowly. She is now able to lay on R side Pain Assessment - Pain Description Pain Location: R lat LE Pain Description: Aching Current Pain Intensity: pt is dull ache Other Comments regarding Pain:: pt states has improved in her low back and continues to have the pain in RLE. Functional Outcome Measure Oswestry LBP: 26 (52%) - G Codes & Severity Modifier G Codes & Modifier: mobility current CK. mobility goal CJ Source of G Code score: oswestry Observation - Observation Posture: Forward Head, Rounded Shoulders, Increased Thoracic Kyphosis, Decreased Lumbar Lordosis Handedness: Right Gait - Gait Pattern General Gait Pattern Observation: Antalgic Gait Gait Comments: slight antalgic gait due to pain in RLE General Range of Motion: WFL's Muscle Strength: WFL's Interventions - Exercise/Activities/Manual Therapy Exercises/Activities: n/a Manual Therapy: n/a HOME EXERCISE PROGRAM: pt given written HEP including AP, LAQ, seated hip flex, pelvic tilts, isometric hip add, resisted hip flex - Charges Timed Code Treatment Minutes: n/a Total Treatment Time: n/a Procedures billed for this date of service:: n/a Assessment Assessment: pt has met all STG's and progressing/partially met LTG's. pt has improved with LBP as well as with strength and endurance. pt has continued with pain in RLE. Patient Education: Home Exercise Program, Education of Plan of Care Rehab Potential: Good Short Term Goals Goal #1: pt rate pain < 5/10 with activity Goal to be met by: 03/10/18 Progress towards Goal:: Met Goal #2: pt amb with quad cane in dept with decreased c/o pain in improved posture Goal to be met by: 03/10/18 Progress towards Goal:: Met Goal #3: pt demonstrate improved RLE strength 4-/5 to 4/5 Goal to be met by: 03/10/18 Progress towards Goal:: Met Goal #4: pt demonstrate improved dyn stand balance as noted by tinetti score Goal to be met by: 03/10/18 Progress towards Goal:: Met () [facility] Goals Goal #1: pt improved strength BLE 4 to 4+/5 and independent with HEP Goal to be met by: 03/31/18 Progress towards goal: Partially Met Goal #2: pt with improved dyn stand balance as noted by tinetti score Goal to be met by: 03/31/18 Progress towards goal: Progressing Goal #3: 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
== END 2018-03-15 23:59 ==
PROVIDERS: ATTEND Family Medicine
DX: M54.5 Low back pain (principal); G89.29 Other chronic pain; S89.91XA Unspecified injury of right lower leg, initial encounter; M79.604 Pain in right leg; M62.81 Muscle weakness (generalized); R26.9 Unspecified abnormalities of gait and mobility

== ENCOUNTER 2018-04-12 09:57 | Outpatient (CLI) | payer OTHER | END 2018-04-12 09:58 | disposition home or self-care (01) | LOC: LAB 09:57 | PROVIDERS: ATTEND Family Medicine | DX: Z51.81 Encounter for therapeutic drug level monitoring (principal); Z79.01 Long term (current) use of anticoagulants | CPT/HCPCS: 36415; 85610 ==

== ENCOUNTER 2018-06-21 08:56 | Outpatient (CLI) | END 2018-06-21 08:57 | disposition home or self-care (01) | LOC: LAB 08:56 | PROVIDERS: ATTEND Nurse Practitioner | DX: N18.3 Chronic kidney disease, stage 3 (moderate) (principal); E55.9 Vitamin D deficiency, unspecified | CPT/HCPCS: 36415; 80053; 81001; 82306; 82570; 83735; 83970; 84100; 84156; 84550; 85027 ==

== ENCOUNTER 2018-08-06 08:03 | Outpatient (CLI) ==
--- NOTE | 2018-08-06 10:52 | MAMMO ---
EXAM: Bilateral digital screening mammogram (2-D and 3-D) History: Screening Comparison: Bilateral mammogram 08/14/2017 Findings: MLO and CC views of bilateral breasts demonstrate predominately fatty replaced breast pare nchyma. CAD was reviewed by the radiologist. Tomosynthesis was performed. There are no dominant ma sses, no suspicious microcalcifications and no architectural distortions Impression: Stable negative mammogram. Recommend followup routine screening mammography in 1 year. BIRADS 1
== END 2018-08-06 08:04 | disposition home or self-care (01) ==
LOC: RAD 08:03
PROVIDERS: ATTEND Family Medicine
DX: Z12.31 Encounter for screening mammogram for malignant neoplasm of breast (principal)
CPT/HCPCS: 77067

== ENCOUNTER 2018-09-10 15:37 | Outpatient (CLI) | payer OTHER ==
--- NOTE | 2018-09-10 16:19 | CT ---
EXAM: CT of the abdomen pelvis without contrast History: Right flank pain, history of appendectomy and cholecystectomy. Comparison: CT abdomen and pelvis 06/15/2016 Technique: Multiplanar CT images through the abdomen pelvis were obtained without the administration of IV contrast Findings: Coronary calcifications. Lung bases are clear. No acute osseous abnormalities. Status post cholecystectomy. No focal liver or splenic lesions. Atherosclerotic vascular calcificat ions. No peripancreatic inflammation. Stable benign hyperplasia of the bilateral adrenal glands. 1 .7 cm mass within the inferior pole of the right kidney. 0.9 cm simple cyst within the inferior pole of the left kidney. No renal calculi and no hydronephrosis. No ureteral stones. No bowel obstruct ion. No bladder wall thickening. No free air and no ascites. Colonic diverticulosis. No inflammat ory stranding. Previous appendectomy. No lymphadenopathy. Impression: 1. No renal or ureteral stones and no hydronephrosis. 2. Colonic diverticulosis. 3. Indeterminate mass within the inferior pole of the right kidney. Recommend further evaluation wi th renal ultrasound. 4. Small simple cyst within the left kidney. 5. Atherosclerotic vascular disease. 6. Coronary artery disease. 7. Stable benign hyperplasia of the bilateral adrenal glands
== END 2018-09-10 15:38 | disposition home or self-care (01) ==
LOC: RAD 15:37
PROVIDERS: ATTEND Family Medicine
DX: R10.84 Generalized abdominal pain (principal)
CPT/HCPCS: 36415; 74176; 80053; 81001; 82150; 83690; 85025; 87086; 87186

== ENCOUNTER 2018-12-20 09:20 | Outpatient (CLI) | payer OTHER | END 2018-12-20 09:21 | disposition home or self-care (01) | LOC: LAB 09:20 | PROVIDERS: ATTEND Nurse Practitioner | DX: N18.3 Chronic kidney disease, stage 3 (moderate) (principal); E55.9 Vitamin D deficiency, unspecified | CPT/HCPCS: 36415; 80053; 81001; 82306; 82570; 83735; 83970; 84100; 84156; 84550; 85027 ==

== ENCOUNTER 2019-03-02 08:26 | Outpatient (CLI) | payer OTHER | END 2019-03-02 08:27 | disposition home or self-care (01) | LOC: LAB 08:26 | PROVIDERS: ATTEND Family Medicine | DX: R30.0 Dysuria (principal) | CPT/HCPCS: 81001; 87086; 87186 ==

== ENCOUNTER 2019-07-04 09:52 | Outpatient (CLI) | END 2019-07-04 09:53 | disposition home or self-care (01) | LOC: LAB 09:52 | PROVIDERS: ATTEND Nurse Practitioner | DX: N18.3 Chronic kidney disease, stage 3 (moderate) (principal) | CPT/HCPCS: 36415; 80069 ==